=== PATIENT | male | born 2000 | race Caucasian/White ===

== ENCOUNTER 2023-03-16 11:56 | Outpatient (CLI) | payer BC | END 2023-03-16 11:57 | disposition home or self-care (01) | LOC: CSHRAD 11:56 → CSHER/OP 11:56 | PROVIDERS: ATTEND Physician Assistant | DX: R05.8 Other specified cough (principal) | CPT/HCPCS: 71046 ==

== ENCOUNTER 2025-02-12 16:41 | Emergency (ER) | payer BC | END 2025-02-12 17:53 | disposition home or self-care (01) | LOC: CSHERS 16:41 | DX: M72.2 Plantar fascial fibromatosis (principal) | CPT/HCPCS: 99283 ==